=== PATIENT | female | born 1945 | race Caucasian/White ===

== ENCOUNTER 2023-03-15 18:59 | Emergency (ER) | payer OTHER ==
--- NOTE | 2023-03-15 20:44 | RAD REPORT ---
EXAM DESCRIPTION: Bravo Single View03/15/2023 8:35 pm CLINICAL HISTORY: Leg swelling COMPARISON: none FINDINGS: The lungs appear clear of acute infiltrate. The heart is normal size IMPRESSION: No acute abnormalities displayed
--- NOTE | 2023-03-15 20:49 | RAD REPORT ---
EXAM DESCRIPTION: USExtrem Venous W Compress Bil03/15/2023 8:36 pm CLINICAL HISTORY: Leg swelling COMPARISON: none FINDINGS: The common femoral, superficial femoral, greater saphenous, popliteal and posterior tibial veins bilaterally are compressible and demonstrate augmentation. Doppler demonstrates good flow. Right Jackson cyst 6 centimeters Left Jackson cyst 6 centimeters Grayscale, color and spectral analysis performed on all vessels IMPRESSION: No evidence of deep venous thrombosis involving either lower extremity. Bilateral Jackson's cysts
[2023-03-15 21:45] LABS: Absolute Lymphocytes (CBC) 2.4 K/uL (0.7-4.9); Lymphocytes % 35.8 % (15.3-44.8); MCV 90.9 fL (80-100); MPV 8.2 fL (7.6-11.3); Platelets 254 thou/uL (152-406); RBC Red Blood Cell Count 4.18 M/uL (3.86-4.86)
[2023-03-15 21:50] LABS: Protime INR 0.96
[2023-03-15 22:02] LABS: Specific Gravity > 1.030 (1.005-1.030); Urine Bacteria <20 /HPF (<20); Urine Bilirubin NEGATIVE (Negative); Urine Blood Negative (Negative); Urine Clarity Extremely Turbid (Clear); Urine Color Yellow (Yellow); Urine Crystals Unidentified Few /HPF (None Seen); Urine Glucose NEGATIVE (Negative); Urine Mucus 4+ /HPF (None Seen); Urine Protein 2+ (Negative); Urine Urobilinogen 1+ (Normal); Urine pH 5.5 (5.0-7.0)
[2023-03-15 22:04] LABS: Magnesium 2.6 mg/dL (1.6-2.4); Potassium 3.2 mEq/L (3.5-5.1); Troponin High Sensitivity 9.5 pg/mL (<58.9)
[2023-03-15] MEDS ORDERED: FUROSEMIDE 20 MG/ 2ML VIAL ONE (22:39)
[2023-03-15] MEDS ORDERED: POTASSIUM 25 MEQ EFFERV TAB ONE (22:39)
--- NOTE | 2023-03-15 23:42 | ER ---
Nurse's Notes [facility] Name: Jessica Winter Age: 78 yrs Sex: Female : 1945 Arrival Date: 03/15/2023 Time: 18:59 Bed 20 Private MD: Diagnosis: Edema, unspecified;UTI/ Urinary tract infection, site not specified Presentation: 03/15 19:44 Chief complaint: Patient states: bilateral leg and feet swelling onset 3 weeks ago and cm10 has been getting worse that started after driving 300 miles. Pt also reports that 3 weeks ago she had a UTI and completed ABX treatment (Keflex). Pt states that she thinks that she may still have a UTI. Pt denies any shortness of breath or chest pain. Coronavirus screen: Vaccine status: Patient reports receiving the 2nd dose of the covid vaccine. Ebola Screen: Patient denies travel to an Ebola-affected area in the 21 days before illness onset. No symptoms or risks identified at this time. Initial Sepsis Screen: Does the patient meet any 2 criteria? No. Patient's initial sepsis screen is negative. Does the patient have a suspected source of infection? No. Patient's initial sepsis screen is negative. Risk Assessment: Do you want to hurt yourself or someone else? Patient reports no desire to harm self or others. Onset of symptoms was March 15, 2023. 19:44 Method Of Arrival: Ambulatory cm10 19:44 Acuity: ELAINE 3 cm10 Triage Assessment: 19:49 General: Appears in no apparent distress. comfortable, Behavior is calm, cooperative. cm10 Pain: Complains of pain in right foot, left foot, right leg and left leg Pain currently is 8 out of 10 on a pain scale. Quality of pain is described as tightness. Neuro: No deficits noted. Level of Consciousness is awake, alert, obeys commands, Oriented to person, place, time, situation. Respiratory: No deficits noted. Airway is patent Respiratory effort is even, unlabored, Respiratory pattern is regular, symmetrical. Historical: - Allergies: 19:49 Erythromycin; cm10 - PMHx: 19:49 Depressive disorder; High Cholesterol; cm10 - Immunization history:: Adult Immunizations unknown. - Social history:: Smoking status: Patient reports the use of cigarette tobacco products, smokes one-half pack cigarettes per day. Screenin:28 Abuse screen: Denies threats or abuse. Denies injuries from another. Nutritional ha1 screening: No deficits noted. Tuberculosis screening: No symptoms or risk factors identified. Assessment: 21:30 General: Appears comfortable, Behavior is calm, cooperative. Pain: Denies pain. Neuro: ha1 Level of Consciousness is awake, alert, obeys commands, Oriented to person, place, time, situation. Neuro:. Cardiovascular: Patient's skin is warm and dry. Cardiovascular: Reports Respiratory: Airway is patent Respiratory effort is even, unlabored, Respiratory pattern is regular, symmetrical. GI: No signs and/or symptoms were reported involving the gastrointestinal system. Abdomen is flat, non-distended. : Reports urinary frequency. Derm: Skin is pink, warm \T\ dry. Derm: SWELLING BILATERAL LEG. Musculoskeletal: Circulation, motion, and sensation intact. Range of motion: intact in all extremities, Reports. 22:00 Reassessment: Patient and/or family updated on plan of care and expected duration. Pain ha1 level reassessed. Patient is alert, oriented x 3, equal unlabored respirations, skin warm/dry/pink. 23:00 Reassessment: Patient and/or family updated on plan of care and expected duration. Pain ha1 level reassessed. Patient is alert, oriented x 3, equal unlabored respirations, skin warm/dry/pink. Vital Signs: 19:44 BP 118 / 73; Pulse 75; Resp 16 S; Temp 97.6; Pulse Ox 100% on R/A; Weight 77.11 kg; cm10 Height 5 ft. 4 in. ; Pain 7/10; 21:30 BP 118 / 98; Pulse 78; Resp 17 S; Pulse Ox 97% on R/A; ha1 22:15 BP 113 / 98; Pulse 73; Resp 17 S; Pulse Ox 98% on R/A; ha1 23:55 BP 114 / 95; Pulse 74; Resp 18 S; Pulse Ox 98% on R/A; ha1 19:44 Body Mass Index 29.18 (77.11 kg, 162.56 cm) cm10 19:44 Pain Scale: Adult cm10 ED Course: 19:07 Patient arrived in ED. mr 19:48 Shiva Aden PA is PHCP. cp 19:48 Shiva Burks MD is Attending Physician. cp 19:49 Triage completed. cm10 19:50 Arm band placed on Patient placed in waiting room. cm10 20:37 XRAY Chest (1 view) In Process Unspecified. EDMS 20:37 US Extremity Venous W Compression Cornelius In Process Unspecified. EDMS 21:30 Patient has correct armband on for positive identification. Placed in gown. Bed in low ha1 position. Call light in reach. Side rails up X 1. 21:40 Basic Metabolic Panel Sent. rv1 21:40 CBC with Diff Sent. rv1 21:40 NT PRO-BNP Sent. rv1 21:40 Magnesium Sent. rv1 21:40 PT-INR Sent. rv1 21:40 Troponin HS Sent. rv1 21:40 Inserted saline lock: 20 gauge in right antecubital area, using aseptic technique. rv1 Blood collected. 22:24 Elli Arellano, RN is Primary Nurse. ha1 23:56 No provider procedures requiring assistance completed. IV discontinued, intact, ha1 bleeding controlled, No redness/swelling at site. Pressure dressing applied. 23:57 Provided Education on: FOLLOW UP AND MEDICATION ADMINISTRATION . ha1 Administered Medications: 22:41 Drug: Furosemide IVP 20 mg IVP once; give over 2 minutes Route: IVP; Site: left ha1 antecubital; 23:53 Follow up: Response: No adverse reaction ha1 22:41 Drug: Potassium PO Effervescent Tablet 50 mEq PO once; dissolve in 4 ounces of water or ha1 juice Route: PO; 23:53 Follow up: Response: No adverse reaction ha1 23:40 Drug: Rocephin IV 1 grams IV at calculated rate once; Given slow IV push per pharmacy ha1 instructions Route: IV; Rate: calculated rate; Site: left antecubital; 23:52 Follow up: Response: No adverse reaction; IV Status: Completed infusion ha1 Medication: 23:57 VIS not applicable for this client. ha1 Outcome: 23:41 Discharge ordered by MD. mcintosh 23:56 Discharged to home ambulatory, ha1 23:56 Condition: stable 23:56 Discharge instructions given to patient, Instructed on discharge instructions, follow up and referral plans. medication usage, Demonstrated understanding of instructions, follow-up care, medications, Prescriptions given X 1, 23:58 Patient left the ED. ha1 Signatures: Dispatcher [employer] [facility] Sravanthi Cadena, Shiva Lezama PA PA cp Arellano, Elli, RN RN ha1 Margarita Sanchez1 Felisa Medina, RN RN cm10
--- NOTE | 2023-03-15 23:42 | EDPHYS ---
Physician Documentation [facility] Name: Jessica Winter Age: 78 yrs Sex: Female : 1945 Arrival Date: 03/15/2023 Time: 18:59 Bed 20 Private MD: ED Physician Shiva Burks HPI: 03/15 20:00 This 78 yrs old Female presents to ER via Ambulatory with complaints of Feet Swelling, cp Urinary Problem. 20:00 The patient presents with swelling. The complaints affect the left leg and right leg cp and left foot and right foot. Onset: The symptoms/episode began/occurred gradually over past 3 weeks. Associated signs and symptoms: Pertinent positives: urinary symptoms, Pertinent negatives fever, warmth, chest pain, shortness of breath. Historical: - Allergies: 19:49 Erythromycin; cm10 - PMHx: 19:49 Depressive disorder; High Cholesterol; cm10 - Immunization history:: Adult Immunizations unknown. - Social history:: Smoking status: Patient reports the use of cigarette tobacco products, smokes one-half pack cigarettes per day. ROS: 20:05 Constitutional: Negative for body aches, chills, fever, poor PO intake, cp 20:05 Eyes: Negative for injury, pain, redness, and discharge, cp 20:05 ENT: Negative for drainage from ear(s), ear pain, sore throat, difficulty swallowing, difficulty handling secretions, 20:05 Cardiovascular: Positive for edema, Negative for chest pain, palpitations, 20:05 Respiratory: Negative for cough, shortness of breath, wheezing, 20:05 Abdomen/GI: Negative for abdominal pain, vomiting, diarrhea, constipation, 20:05 Back: Negative for pain at rest, pain with movement, 20:05 : Positive for urinary symptoms, 20:05 Skin: Negative for rash, 20:05 Neuro: Negative for altered mental status, dizziness, headache, weakness, 20:05 All other systems are negative, Exam: 20:10 Constitutional: The patient appears in no acute distress, alert, awake, comfortable, cp non-diaphoretic, non-toxic, well developed, well nourished, 20:10 Head/Face: Normocephalic, atraumatic. cp 20:10 Eyes: Periorbital structures: appear normal, Conjunctiva: normal, no exudate, no injection, Sclera: no appreciated abnormality, Lids and lashes: appear normal, bilaterally, 20:10 ENT: External ear(s): are unremarkable, Nose: is normal, Mouth: Lips: moist, Oral mucosa: pink and intact, moist, Posterior pharynx: is normal, airway is patent, no erythema, no exudate, 20:10 Neck: ROM/movement: is normal, is supple, without pain, no range of motions limitations, 20:10 Chest/axilla: Inspection: normal, 20:10 Cardiovascular: Rate: normal, Rhythm: regular, Edema: pedal edema, that is mild, ankle edema, that is mild, JVD: is not appreciated, 20:10 Respiratory: the patient does not display signs of respiratory distress, Respirations: normal, no use of accessory muscles, no retractions, labored breathing, is not present, Breath sounds: are clear throughout, no decreased breath sounds, no stridor, no wheezing, 20:10 Abdomen/GI: Inspection: abdomen appears normal, 20:10 Back: pain, is absent, ROM is normal, 20:10 Skin: cellulitis, is not appreciated, no rash present. 20:10 Neuro: Orientation: to person, place \T\ time. Mentation: is normal, Motor: moves all fours, strength is normal, 21:55 ECG was reviewed by the Attending Physician. cp Vital Signs: 19:44 BP 118 / 73; Pulse 75; Resp 16 S; Temp 97.6; Pulse Ox 100% on R/A; Weight 77.11 kg; cm10 Height 5 ft. 4 in. ; Pain 7/10; 21:30 BP 118 / 98; Pulse 78; Resp 17 S; Pulse Ox 97% on R/A; ha1 22:15 BP 113 / 98; Pulse 73; Resp 17 S; Pulse Ox 98% on R/A; ha1 23:55 BP 114 / 95; Pulse 74; Resp 18 S; Pulse Ox 98% on R/A; ha1 19:44 Body Mass Index 29.18 (77.11 kg, 162.56 cm) cm10 19:44 Pain Scale: Adult cm10 MDM: 19:52 Patient medically screened. camila 20:00 Differential diagnosis: DVT, cellulitis, CHF, cardiac arrythmia. cp 23:40 Data reviewed: vital signs, nurses notes, lab test result(s), EKG, radiologic studies, cp plain films, ultrasound. 23:40 Consideration of Admission/Observation Escalation of care including cp admission/observation considered. I considered the following discharge prescriptions or medication management in the emergency department Medications were administered in the Emergency Department. See MAR. Independent interpretation of the following test(s) in the Emergency Department EKG: See my EKG interpretation above X-Ray: My interpretation is chest image negative for infiltrates. Counseling: I had a detailed discussion with the patient and/or guardian regarding the historical points, exam findings, and any diagnostic results supporting the discharge/admit diagnosis, lab results, radiology results, the need for outpatient follow up, a family practitioner, to return to the emergency department if symptoms worsen or persist or if there are any questions or concerns that arise at home. Response to treatment: the patient's symptoms have mildly improved after treatment, and as a result, I will discharge patient. 03/15 19:55 Order name: Basic Metabolic Panel; Complete Time: 22:15 03/15 22:15 Interpretation: Normal except: K 3.2; BUN 22; CRE 1.59; GFR 33. 03/15 19:55 Order name: CBC with Diff; Complete Time: 22:15 03/15 19:55 Order name: Magnesium; Complete Time: 22:15 03/15 19:55 Order name: NT PRO-BNP; Complete Time: 22:15 03/15 23:23 Interpretation: Reviewed. 03/15 19:55 Order name: PT-INR; Complete Time: 22:15 03/15 19:55 Order name: Troponin HS; Complete Time: 22:15 03/15 20:07 Order name: Urinalysis W/Microscopic; Complete Time: 22:15 03/15 22:15 Interpretation: Normal except: [facility] Extremely Turbid; Urine SG > 1.030; UPROT 2+; UUROB cp 1+; UESTR 500; UWBC 20-50; URBC 5-10; MUCUS 4+. 03/15 22:06 Order name: Urine Culture EDRI 03/15 19:55 Order name: XRAY Chest (1 view); Complete Time: 22:15 03/15 19:55 Order name: US Extremity Venous W Compression Cornelius; Complete Time: 22:15 03/15 22:16 Interpretation: Report reviewed. 03/15 19:55 Order name: EKG; Complete Time: 19:56 cp 03/15 19:55 Order name: Cardiac monitoring; Complete Time: 21:53 cp 03/15 19:55 Order name: EKG - Nurse/Tech; Complete Time: 21:53 cp 03/15 19:55 Order name: IV Saline Lock; Complete Time: 21:40 cp 03/15 19:55 Order name: Labs collected and sent; Complete Time: 21:40 cp 03/15 19:55 Order name: O2 Per Protocol; Complete Time: 21:53 cp 03/15 19:55 Order name: O2 Sat Monitoring; Complete Time: 21:53 cp EC:55 Rate is 71 beats/min. Rhythm is regular. LA interval is normal. QRS interval is normal. cp QT interval is prolonged. Interpreted by me. Reviewed by me. Administered Medications: 22:41 Drug: Furosemide IVP 20 mg IVP once; give over 2 minutes Route: IVP; Site: left ha1 antecubital; 23:53 Follow up: Response: No adverse reaction ha1 22:41 Drug: Potassium PO Effervescent Tablet 50 mEq PO once; dissolve in 4 ounces of water or ha1 juice Route: PO; 23:53 Follow up: Response: No adverse reaction ha1 23:40 Drug: Rocephin IV 1 grams IV at calculated rate once; Given slow IV push per pharmacy ha1 instructions Route: IV; Rate: calculated rate; Site: left antecubital; 23:52 Follow up: Response: No adverse reaction; IV Status: Completed infusion ha1 Disposition Summary: 03/15/23 23:41 Discharge Ordered Notes: Location: Home cp Problem: new cp Symptoms: have improved cp Condition: Stable cp Diagnosis - Edema, unspecified cp - UTI/ Urinary tract infection, site not specified cp Followup: cp - With: Private Physician - When: 2 - 3 days - Reason: Recheck today's complaints Discharge Instructions: - Discharge Summary Sheet cp - Edema cp - Urinary Tract Infection, Adult cp Forms: - Medication Reconciliation Form cp - Thank You Letter cp - Antibiotic Education cp - Prescription Opioid Use cp - Patient Portal Instructions cp - Leadership Thank You Letter cp Prescriptions: - Macrobid 100 mg Oral Capsule - take 1 capsule ORAL route every 12 hours for 7 days; 14 capsule; Refills: 0, cp Product Selection Permitted Signatures: Dispatcher [facility] Shiva Juarez MD MD cha Page, Corey, PA PA cp Ayala, Heidy, RN RN ha1 Felisa Medina RN RN cm10
[2023-03-15] MEDS ORDERED: CEFTRIAXONE 1000 MG/VIAL ONE (23:57)
[2023-03-16 00:31] VITALS: TEMP 97.6
[2023-03-16 00:42] VITALS: O2SAT 98
[2023-03-16 00:44] VITALS: BP 114/95
--- NOTE | 2023-03-18 12:37 | EKG ---
Test Date: 2023-03-15 Test Time: 21:48:02 Vessel Slag Worker: RV MEASUREMENT RESULTS: Intervals: Rate: 71 IA: 158 QRSD: 76 QT: 466 QTc: 506 [place]: P: 30 IA: 158 QRS: 26 T: -76 INTERPRETIVE STATEMENTS: Normal sinus rhythm Marked ST abnormality, possible inferior subendocardial injury Prolonged QT Abnormal ECG No previous ECG available for comparison Electronically Signed On 03-18-23 12:31:57 CDT by Angelo Mcclelland
== END 2023-03-15 23:58 | disposition home or self-care (01) ==
LOC: ER 18:59
DX: R60.9 Edema, unspecified (principal); N39.0 Urinary tract infection, site not specified; F17.210 Nicotine dependence, cigarettes, uncomplicated; Z88.3 Allergy status to other anti-infective agents
CPT/HCPCS: 87088; 85025; 81001; 87086; 80048; 36415; 83735; 85610; 84484; 83880; 71045; 93970; 96375; 96374; 99284; J1940; J0696; 93005